=== PATIENT | female | born 1955 | race African-American/Black ===

== ENCOUNTER 2017-07-04 06:51 | Emergency (ER) | payer OTHER ==
[2017-07-04 08:22] VITALS: BP 131/80; PULSE 67; TEMP 97.6; BMI 33.3
--- NOTE | 2017-07-04 08:23 | PDOC ---
History of Present Illness - General Chief Complaint: Cold Symptoms Stated Complaint: DIFFICULTY BREATHING Time Seen by Provider: 07/04/17 07:53 - History of Present Illness Initial Comments: 07/04/17 08:48 The patient is a 62 year old female, with a significant past medical history of asthma, thyroid disorder who presents to the emergency department with a dry cough for approximately one week. She reports frequent coughing fits that keep her up at night. She reports associated chest pain when coughing, which she describes as a tightness, She reports post nasal drip and states she often has seasonal allergies. Denies any fever, chills, sore throat, SOB, headache, or dizziness. Patient reports taking Montelukast for her symptoms with minimal relief. She denies any diaphoresis, palpitations, or lower extremity edema. She denies any abdominal pain, nausea, or vomiting. She denies any recent travel or sick contacts. Allergies: NKDA Past Surgical History: None reported. Social History: Non smoker. No ETOH or recreational drug use. PCP: Dr. Plaza Past History - Past Medical History Allergies/Adverse Reactions: Allergies Allergy/AdvReac Type Severity Reaction Status Date / Time No Known Allergies Allergy Verified 06/02/15 20:54 Home Medications: Ambulatory Orders Ibuprofen [Motrin -] 800 mg PO Q6H #30 tablet 06/02/15 Albuterol Sulfate Inhaler - [Ventolin HFA Inhaler -] 1 - 2 inh PO Q4H PRN #1 inhaler 07/04/17 Loratadine 10 mg PO DAILY #10 tab.rapdis 07/04/17 Prednisone [Prednisone 50 MG TABLETS] 50 mg PO DAILY #4 tablet 07/04/17 Asthma: Yes COPD: No - Suicide/Smoking/Psychosocial Hx Smoking History: Never smoked Have you smoked in the past 12 months: No Information on smoking cessation initiated: No Hx Alcohol Use: No Drug/Substance Use Hx: No Substance Use Type: None Review of Systems - Review of Systems Comments:: 07/04/17 08:48 GENERAL/CONSTITUTIONAL: No fever or chills. No weakness. HEAD, EYES, EARS, NOSE AND THROAT: +Post nasal drip. No change in vision. No ear pain or discharge. No sore throat. GASTROINTESTINAL: No nausea, vomiting, diarrhea or constipation. GENITOURINARY: No dysuria, frequency, or change in urination. CARDIOVASCULAR: +Chest pain with coughing, no shortness of breath. RESPIRATORY: +Cough. No wheezing, or hemoptysis. MUSCULOSKELETAL: No joint or muscle swelling or pain. No neck or back pain. SKIN: No rash NEUROLOGIC: No headache, vertigo, loss of consciousness, or change in strength/ sensation. ENDOCRINE: No increased thirst. No abnormal weight change. HEMATOLOGIC/LYMPHATIC: No anemia, easy bleeding, or history of blood clots. ALLERGIC/IMMUNOLOGIC: No hives or skin allergy. *Physical Exam - Vital Signs Last Vital Signs Temp Pulse Resp BP Pulse Ox 97.6 F 67 20 131/80 100 07/04/17 08:17 07/04/17 08:17 07/04/17 08:17 07/04/17 08:17 07/04/17 08:17 - Physical Exam Comments: 07/04/17 08:49 GENERAL: Awake, alert, and fully oriented, in no acute distress HEAD: No signs of trauma EYES: PERRLA, EOMI, sclera anicteric, conjunctiva clear ENT: Auricles normal inspection, hearing grossly normal, +nasal congestion, oropharynx clear without exudates. Moist mucosa NECK: Normal ROM, supple, no lymphadenopathy, JVD, or masses LUNGS: Breath sounds equal, clear to auscultation bilaterally. No wheezes, and no crackles HEART: Regular rate and rhythm, normal S1 and S2, no murmurs, rubs or gallops ABDOMEN: Soft, nontender, normoactive bowel sounds. No guarding, no rebound. No masses EXTREMITIES: Normal range of motion, no edema. No clubbing or cyanosis. No cords, erythema, or tenderness BACK: No midline spinal tenderness in cervical/thoracic/lumbar region NEUROLOGICAL: Normal speech, cranial nerves intact, negative pronator drift, 5/ 5 strength in all 4 extremities, normal sensation to light touch in all 4 extremities, normal cerebellar exam, normal gait, normal reflexes and tone SKIN: Warm, Dry, normal turgor, no rashes or lesions noted. Medical Decision Making - Medical Decision Making 07/04/17 08:49 62-year-old female with a history of asthma, thyroid disorder, and seasonal ALLERGIES presents to the emergency department with cough for 5 days. Patient also reporting chest tightness only when she coughs. Vitals are unremarkable. Exam is unremarkable with no wheezing, and clear lung sounds. Patient likely has cough secondary to postnasal drip, but mild asthma exacerbation is on the differential as well. Will dose the patient with Claritin, nebs, and steroids as well as check chest x-ray to rule out any infiltrates and reassess. 07/04/17 10:32 Chest x-ray is clear. Patient reports significant improvement in symptoms after nebulizer treatment, loratadine and steroids. Will prescribe these medications to the patient for use at home. Patient advised to follow-up with Dr. Plaza within 2-3 days. Pt is clinically well appearing. I discussed the physical exam findings, ancillary test results and final diagnoses with the patient. I answered all of the patient's questions. The patient was satisfied with the care received and felt comfortable with the discharge plan and treatment plan. The patient will call their primary care physician within 24 hours to arrange follow-up and will return to the Emergency Department with any new, persistent or worsening symptoms. *DC/Admit/Observation/Transfer Diagnosis at time of Disposition: Cough - Discharge Dispostion Disposition: HOME Condition at time of disposition: Stable Decision to Admit order: No - Prescriptions Prescriptions: Albuterol Sulfate Inhaler - [Ventolin HFA Inhaler -] 1 - 2 inh PO Q4H PRN #1 inhaler PRN Reason: Shortness Of Breath Loratadine 10 mg PO DAILY #10 tab.rapdis Prednisone [Prednisone 50 MG TABLETS] 50 mg PO DAILY #4 tablet - Referrals Referrals: Dione Plaza MD [Primary Care Provider] - - Patient Instructions Printed Discharge Instructions: DI for Cough -- Adult Additional Instructions: As discussed, follow-up with Dr. Plaza within 2-3 days. Take the prednisone and loratadine as prescribed. Use the albuterol as needed for shortness of breath. Return to the emergency department if you have any new, worsening or concerning symptoms. - Post Discharge Activity - Attestations Physician Attestion: 07/04/17 10:34 I, Dr. Sonia Bergman MD, attest that this document has been prepared under my direction and personally reviewed by me in its entirety. I further attest, that it accurately reflects all work, treatment, procedures and medical decision -making performed by me.
[2017-07-04] MEDS ORDERED: LORATADINE 10 MG TABLET PO ONE (08:29)
[2017-07-04] MEDS ORDERED: ALBUTEROL SO4 2.5/IPRATROPIUM 0.5 INH SOL 3 ML VIAL.NEB. NEB ONE ×2 (08:29→09:10)
[2017-07-04] MEDS ORDERED: predniSONE 20 MG TABLET (UD) PO ONE (08:45)
[2017-07-04] MEDS ORDERED: LORATADINE 10 MG TABLET ONE ×2 (09:10→09:14)
[2017-07-04] MEDS ORDERED: predniSONE 10 MG TABLET (UD) ONE (09:10)
[2017-07-04] MEDS ORDERED: predniSONE 20 MG TABLET (UD) ONE (09:10)
== END 2017-07-04 10:36 | disposition home or self-care (01) ==
LOC: JER 06:51
PROC: 3E0F7GC Introduction of Other Therapeutic Substance into Respiratory Tract, Via Natural or Artificial Opening (ICD-10-PCS; principal; 2017-07-04)
DX: R05 Cough (principal); E07.9 Disorder of thyroid, unspecified; J45.909 Unspecified asthma, uncomplicated
CPT/HCPCS: 71046-TC-FY; 99281-25; J7620

== ENCOUNTER 2018-07-26 09:26 | Day surgery (SDC) | payer OTHER ==
[2018-07-25 09:08] VITALS: BMI 33.6
[2018-07-26] MEDS ORDERED: KETOROLAC TROMETHAMINE 30 MG/1 ML VIAL ONE (09:42)
[2018-07-26] MEDS ORDERED: LIDOCAINE HCL/PF 2% SDV 5ML VIAL ONE (09:42)
[2018-07-26] MEDS ORDERED: PROPOFOL 20 ML ONE ×9 (09:42→12:55)
[2018-07-26] MEDS ORDERED: DEXAMETHASONE SOD PHOSPHATE 4 MG/1 ML VIAL ONE ×2 (09:42→13:23)
[2018-07-26] MEDS ORDERED: MIDAZOLAM HCL 2 MG/2 ML SINGLE DOSE VIAL ONE (09:45)
[2018-07-26] MEDS ORDERED: ONDANSETRON 4 MG/2 ML VIAL IVPUSH PRN (10:21)
[2018-07-26] MEDS ORDERED: oxyCODONE HCL 5 MG TABLET PO PRN ×2 (10:21)
[2018-07-26] MEDS ORDERED: LACTATED RINGERS SOLUTION 1,000 ML IV SCH (10:30)
[2018-07-26] MEDS ORDERED: BUPIVACAINE HCL/PF 0.25% (2.5MG/ML) 10 ML VIAL ONE (11:14)
[2018-07-26] MEDS ORDERED: BUPIVACAINE HCL/PF 0.5% (5MG/ML) 10 ML VIAL ONE (11:29)
[2018-07-26] MEDS ORDERED: SODIUM CHLORIDE 0.9% P/F 10 ML VIAL IJ ONE (11:33)
[2018-07-26] MEDS ORDERED: ceFAZolin SODIUM 1 GM VIAL ONE (11:33)
[2018-07-26] MEDS ORDERED: ceFAZolin 2 GRAM PREMIX BAG IVPB ONE (11:46)
[2018-07-26] MEDS ORDERED: BUPIVACAINE HCL/PF (5 MG/ML) 30 ML VIAL IJ ONE (11:48)
[2018-07-26] MEDS ORDERED: EPHEDRINE SULFATE/0.9% NACL/PF 50 MG/10 ML SYRINGE NR ONE (11:50)
[2018-07-26] MEDS ORDERED: BENZOIN TINCTURE SWABSTICK TP ONE (13:20)
[2018-07-26] MEDS ORDERED: DEXAMETHASONE SOD PHOSPHATE 4 MG/1 ML VIAL IM ONE (13:34)
[2018-07-26] MEDS ORDERED: KETOROLAC TROMETHAMINE 30 MG/1 ML VIAL IVPUSH ONE ×2 (13:47→14:09)
[2018-07-26 14:38] VITALS: TEMP 97.6
[2018-07-26 17:26] VITALS: BP 130/88; PULSE 69
--- NOTE | 2018-07-28 16:44 | OP ---
DATE OF OPERATION: 07/26/2018 SURGEON: Kahlil Franco DPM WIDE [employer]IECE GOODS INSPECTOR SURGEON: Kenny Milner DPM. ANESTHESIOLOGIST: DIAGNOSES: 1. Hallux abductovalgus deformity, left. 2. Tailor's bony deformity, left. 3. Synovitis peroneal brevis tendon and subtalar joint, left. 4. Plantar fasciitis, left. 5. 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 6. Mallet toe deformity 2, 3, 4, 5, left. DESCRIPTION OF PROCEDURE: The patient was brought to the OR and placed on the OR table in the supine position. Neuroleptic anesthesia was administered and an ankle block was performed using 0.25% Marcaine. The left extremity was elevated for approximately 5 minutes and a well-padded pneumatic ankle tourniquet was inflated to 250 mmHg. Procedure number 1 - Navid bunionectomy left with a 16 x 3.0 partially threaded cortical cannulated screw fixation, left foot. Attention was directed to the first MPJ. A curvilinear incision was made over the first MPJ. The incision was deepened down through subcutaneous tissue maintaining hemostasis necessary with 4-0 Vicryl ligature. The superficial fascia was freed from the deep fascia. An inverted L -type capsular incision was made. Subcapsular and subperiosteal dissection was completed. The dorsal medial prominence of the first metatarsal was delivered into the wound site and resected with a sagittal saw. Then the osteotomy was created at an approximately 55 degree angle from median to lateral across the first metatarsal. The capital fragment was then distracted both laterally and impacted upon first metatarsal for stability. Then a 3.0 mm x 16-mm partially threaded cortical screw was driven across the osteotomy from distal dorsal to plantar proximal. Rigid internal fixation was gained. Then the prominent medial and cortical edge was resected at the sagittal saw. Closure was performed using 2-0 Vicryl for joint capsule, 4-0 Vicryl for subcutaneous and running 4-0 nylon subcuticular. Procedure number 2 - Arthroplasty DIPJ, second digit left. Attention was directed to the DIPJ of the second digit left where 2 converging transverse incisions were created. A wedge of skin was removed in toto. The incision was deepened into the DIPJ of the 2nd digit. The medial and lateral collateral ligaments were sectioned. The head of the middle phalanx was delivered into the wound site and resected using a sagittal saw. Then a 0.045 K-wire was driven out the distal and retrograded back into the middle and proximal phalanx. The K-wire was bent and cut. Closure was performed using 4-0 Vicryl extensor tendon and 4-0 nylon for the skin. Procedure number 3 - Tailor's bunionectomy, left foot. Attention was directed to the dorsal lateral side of the 5th metatarsal where a linear incision was created. The incision was deepened down through subcutaneous tissue maintaining hemostasis as necessary with 4-0 Vicryl ligature and Bovie cautery. A capsular incision was made into the 5th MPJ. The head of the 5th metatarsal was dissected free of subcapsular and subperiosteal tissues delivered into the wound site and resected using the sagittal saw. All bony edges were rasped smooth and the wound site was flushed with sterile saline. Closure was performed using 4-0 Vicryl for joint capsule, subcutaneous closure, and 4-0 nylon for the skin. Procedure number 4 - Adjacent tissue transfer, left. Attention was directed to a previous cicatrix dorsum of the left foot. A linear incision was made paralleling the contracture which was longitudinal. The incision was deepened down through subcutaneous tissue. A Z-plasty was performed. Two arms were created at approximately a 60-degree angle. The incisions were deepened down through the subcutaneous level. Two triangular flaps were raised and rotated approximately 90 degrees to reorient the contracture from longitudinal to transverse. Skin closure was performed using 4-0 nylon, simple, and apical sutures. Procedure number 5 - Synovectomy flexor, left. Attention was directed to the insertion of the peroneal brevis tendon. A linear incision was made paralleling the tendon. The incision was deepened down through the tendon sheath. Hypertrophic synovitis was noted to be within the tendon sheath and resected. The area was lavaged with sterile saline. Closure was performed using 3-0 and 4-0 Vicryl tendon sheath, 4-0 Vicryl subcutaneous, and 4-0 nylon for the skin. Procedure number 6 - Tenotomy and capsulotomy of 2nd MPJ, left. A linear incision was made between the 2nd and 3rd MPJs. The incision was deepened down through the subcutaneous tissue maintaining hemostasis necessary for a 4-0 Vicryl ligature. The attention was directed to the extensor tendon complex 2nd MPJ and lengthening was performed. Then the U-shaped capsulotomy was made into the 2nd MPJ. The contracture was noted to reduce and the wound site was flushed with sterile saline. Extensor tendon complex repair was performed using 4-0 Vicryl. Procedure number 7 - Tenotomy and capsulotomy 3rd MPJ, left. With exposure gained from the previous procedure, attention was directed to the extensor tendon complex of the 3rd MPJ. Lengthening was performed of the extensor tendon and a U-shaped capsulotomy was made into the 3rd MPJ. Subcapsular dissection was completed, the contracture was noted to reduce, and the wound site was flushed with sterile saline. Closure was performed using 4-0 Vicryl subcutaneous and 4-0 nylon for the skin. Procedure number 8 - Tenotomy and capsulotomy 4th metatarsophalangeal joint, left. Attention was directed to the 4th MPJ left. A linear incision was made. The incision was deepened down through subcutaneous tissue maintaining hemostasis as necessary with a 4-0 Vicryl ligature. The extensor tendon complex was identified and the lengthening was performed. Then a U-shaped capsulotomy was created. The contracture was noted to reduce. The wound site was flushed with sterile saline and closure was performed using 4-0 Vicryl for subcutaneous and 4-0 nylon for the skin. Procedure number 9 - Fasciotomy, left. Attention was directed to the insertion of the plantar fascia medially. The linear incision was made paralleling the plantar fascia. The incision was deepened down through the medial band of the plantar fascia which was transected at its insertion. The wound site was flushed with sterile saline and closure was performed using 4-0 nylon. Procedure number 10 - Tenotomy DIPJ 3rd digit, left. Attention was directed plantarly to the DIPJ where a transverse incision was made. The incision was deepened down to the joint capsule of the DIPJ. A transverse tenotomy and capsulotomy was created. Good contractures were closed using 4-0 nylon. Procedure number 11 - Tenotomy DIPJ 4th digit, left. Attention was directed to the plantar aspect of the DIPJ 4th digit, left. A transverse incision was created and the incision was deepened down through the joint capsule of the DIPJ and transverse tenotomy and capsulotomy was created. Contracture was noted to reduce. Closure was performed using 4-0 nylon for skin. Procedure number 12 - Tenotomy DIPJ 5th digit, left. Attention was directed to the plantar aspect of the 5th digit, left. A transverse incision was created. The incision was deepened down to the DIPJ of the 5th digit left and the transverse tenotomy and capsulotomy was created. Contractures were noted to reduce and skin closure was done using 4-0 nylon. Procedure number 13 - Arthrotomy, left. Attention was directed to the midfoot. A linear incision was made in the midfoot over the tarsal, metatarsal, intertarsal joint. The incision was deepened down through subcutaneous tissue maintaining hemostasis as necessary with a 4-0 Vicryl ligature. Subscapular dissection was completed at the tarsal, metatarsal and intertarsal joint. Some hypertrophic synovitis as well as what appears to be gout crystals were excised from this area and thorough debridement was performed. The area was lavaged with sterile saline and closure was performed using 4-0 Vicryl joint capsule, subcutaneous, and 4-0 nylon for the skin. Postoperatively all surgical sites were dressed with sterile 4 x 4s, Adaptic, Steri-Strips, Kerlix, Coban and SENG bandage. The well-padded pneumatic ankle tourniquet was deflated and normal hyperemic flush noted to return to all digits of the left foot. The patient tolerated the surgery and anesthesia well and left the OR for the recovery room with vital signs stable and in apparent satisfactory condition. KAHLIL FRANCO DPM [id number] MTDСветлана
--- NOTE | 2018-07-30 17:02 | PATH ---
Surgical Pathology Report Patient Name: CAYETANO GARCIA [facility]. Rec. #: [id number] /Age/Gender: 1955 (Age: 63) / F Account: [id number] Location: [facility] Taken: 07/26/2018 Received: 07/29/2018 Reported: 07/30/2018 Physicians: Kahlil Sevilla DPM Specimen(s) Received A: TISSUE OF LEFT FOOT B: BONE 2ND DIGIT LEFT FOOT C: SKIN OF LEFT FOOT D: BONE GREAT TOE LEFT FOOT E: SYNOVIUM F: JOINT CAPSULE GREAT TOE LEFT FOOT G: METATARSAL BONE OF LEFT FIFTH TOE Clinical History Hallux valgus left foot Final Diagnosis A. TISSUE, LEFT FOOT, EXCISION: FIBROCONNECTIVE TISSUE WITH NO SIGNIFICANT PATHOLOGIC CHANGE. NO HISTOLOGIC EVIDENCE OF GOUT. B. BONE, SECOND DIGIT, LEFT FOOT, EXCISION: CARTILAGE CAPPED BONE WITH FATTY MARROW SHOWING DEGENERATIVE CHANGE. C. SKIN, LEFT FOOT, SKIN PLASTY: PORTION OF ACRAL SKIN WITH NO SIGNIFICANT PATHOLOGIC CHANGE. D. BONE, GREAT TOE, LEFT FOOT, EXCISION: CARTILAGE AND BONE WITH FATTY MARROW SHOWING FOCAL DEGENERATIVE CHANGE. E. SYNOVITIS, GREAT TOE, EXCISION: PORTION OF FIBROCONNECTIVE TISSUE WITH FIBROSIS AND FOCAL DYSTROPHIC CALCIFICATION. F. JOINT CAPSULE, GREAT TOE, LEFT FOOT, EXCISION: FIBROCARTILAGINOUS TISSUE WITH FOCAL DEGENERATIVE CHANGE. G. METATARSAL BONE OF LEFT FIFTH TOE, EXCISION: FIBROCONNECTIVE TISSUE AND CARTILAGE CAPPED BONE WITH FATTY MARROW SHOWING FOCAL REACTIVE AND DEGENERATIVE CHANGE. Electronically Signed Lizette Toledo M.D. Gross Description A. Received in formalin labeled "tissue left foot rule out gout," is a 0.5 cm in greatest dimension burks soft tissue fragment. The specimen is submitted in toto in one cassette. B. Received in formalin labeled "bone second digit left foot," is a 1.0 x 0.6 x 0.3 cm burks-yellow portion of bone. The specimen is bisected and entirely submitted in one cassette, following decalcification. C. Received in formalin labeled "skin second digit left foot," is a 1.5 x 0.6 cm burks, elliptical, unoriented portion of skin excised to a depth of 0.2 cm. The epidermal surface is unremarkable. Torch Solderer sections are submitted in one cassette. D. Received in formalin labeled "bone great toe left foot," are 2 burks-yellow portions of bone measuring 1.8 x 1.0 x 0.4 cm and 2.0 x 1.7 x 0.6 cm. Torch Solderer sections are submitted in one cassette, following decalcification. E. Received in formalin labeled "synovitis left great toe," is a 0.5 cm in greatest dimension burks portion of soft tissue. The specimen is submitted in toto in one cassette. F. Received in formalin labeled "great toe joint capsule left foot," is a 1.8 x 0.7 x 0.2 cm burks portion of soft tissue. The specimen is bisected and entirely submitted in one cassette. G. Received in formalin labeled "metatarsal bone of fifth toe left," are 3 burks-yellow portions of bone ranging from 0.6 x 0.3 x 0.1 cm to 1.2 x 0.6 x 0.2 cm. The largest portion is bisected and the specimen is entirely submitted in one cassette, following decalcification. 07/29/2018 [facility]07/29/2018
== END 2018-07-26 16:02 | disposition home or self-care (01) ==
LOC: JASU-SURG 09:26
PROVIDERS: ATTEND Podiatrist
PROC: 0QSP04Z Reposition Left Metatarsal with Internal Fixation Device, Open Approach (ICD-10-PCS; 2018-07-26)
PROC: 0QSR04Z Reposition Left Toe Phalanx with Internal Fixation Device, Open Approach (ICD-10-PCS; 2018-07-26)
PROC: 0QBR0ZZ Excision of Left Toe Phalanx, Open Approach (ICD-10-PCS; 2018-07-26)
PROC: 0SSN0ZZ Reposition Left Metatarsal-Phalangeal Joint, Open Approach (ICD-10-PCS; 2018-07-26)
PROC: 0SNQ0ZZ Release Left Toe Phalangeal Joint, Open Approach (ICD-10-PCS; principal; 2018-07-26 11:00)
DX: M20.5X2 Other deformities of toe(s) (acquired), left foot (principal); M65.872 Other synovitis and tenosynovitis, left ankle and foot; M21.622 Bunionette of left foot; M72.2 Plantar fascial fibromatosis; M24.575 Contracture, left foot; M21.612 Bunion of left foot
CPT/HCPCS: 73630-TC-LT; 88304-TC; 88311-TC; 94760

== ENCOUNTER 2018-12-17 11:42 | Day surgery (SDC) | payer OTHER ==
--- NOTE | 2018-12-16 09:38 | HP ---
[facility]ellite [facility] - Chief Complaint Chief Complaint: right knee pain - Past Medical History Allergies/Adverse Reactions: Allergies Allergy/AdvReac Type Severity Reaction Status Date / Time No Known Allergies Allergy Verified 11/05/18 09:06 - Current Medications Current Medications: Home Medications Medication Instructions Recorded Albuterol Sulfate Inhaler - 1 - 2 inh PO Q4H PRN #1 inhaler 07/04/17 [Ventolin HFA Inhaler -] Loratadine 10 mg PO DAILY #10 tab.rapdis 07/04/17 Thyroid [[place] Thyroid] 90 mg PO ASDIR 07/25/18 Satellite Physical Exam - Physical Examination General Appearance: Well Nourished, Well Developed, Alert & Oriented x3 ENT: Clear Lung: Normal air movement Extremities: Other (right knee- + swelling, + ttp, decr rom, + mcmurrays, nvi, MRI + mmt, lmt, OA) Neurological: Intact, Alert, Oriented Satellite Impression/Plan - Impression/Plan Impression: right knee internal derangement Operative Procedure: right knee arthroscopy Date to be Performed: 12/17/18
[2018-12-16 14:34] VITALS: BMI 36.1
[2018-12-17] MEDS ORDERED: BUPIVACAINE HCL/PF 0.5% (5 MG/ML) 30 ML VIAL IJ ONE (14:51)
[2018-12-17] MEDS ORDERED: MIDAZOLAM HCL 2 MG/2 ML SINGLE DOSE VIAL ONE (14:54)
[2018-12-17] MEDS ORDERED: PROPOFOL 20 ML ONE (14:54)
[2018-12-17] MEDS ORDERED: LIDOCAINE HCL/PF 2% SDV 5ML VIAL ONE (14:56)
[2018-12-17] MEDS ORDERED: ceFAZolin SODIUM 1 GM VIAL IVPB ONE (15:18)
[2018-12-17] MEDS ORDERED: ONDANSETRON 4 MG/2 ML VIAL ONE (15:22)
[2018-12-17] MEDS ORDERED: ceFAZolin SODIUM 1 GM VIAL ONE (15:22)
[2018-12-17] MEDS ORDERED: DEXAMETHASONE SOD PHOSPHATE 4 MG/1 ML VIAL ONE (15:22)
--- NOTE | 2018-12-17 16:14 | OP ---
Operative Note - Note: Operative Date: 12/17/18 Pre-Operative Diagnosis: right knee medial meniscus tear, OA, ACL insufficency Operation: right knee arthroscopy, partial medial meniscectomy, debridement chondroplasty, ACL reconstruction/thermal shrinkage Post-Operative Diagnosis: Same as Pre-op Surgeon: Manoj Buitrago Anesthesiologist/SENIOR GRANT WRITER: Marissa Hua Anesthesia: General, Local Specimens Removed: shrinkage Estimated Blood Loss (mls): 0 Drains, Volume Out (mls): 0 Blood Volume Replaced (mls): 0 Fluid Volume Replaced (mls): 700 Operative Report Dictated: Yes
[2018-12-17] MEDS ORDERED: ONDANSETRON 4 MG/2 ML VIAL IVPUSH PRN (16:23)
[2018-12-17] MEDS ORDERED: oxyCODONE HCL 5 MG TABLET PO PRN (16:23)
[2018-12-17] MEDS ORDERED: LACTATED RINGERS SOLUTION 1,000 ML IV SCH (16:30)
--- NOTE | 2018-12-17 17:02 | OP ---
DATE OF OPERATION: 12/17/2018 PREOPERATIVE DIAGNOSIS: Right knee pain, medial meniscus tear, osteoarthritis, and anterior cruciate ligament insufficiency. POSTOPERATIVE DIAGNOSIS: Right knee pain, medial meniscus tear, osteoarthritis, and anterior cruciate ligament insufficiency. PROCEDURE: Right knee arthroscopy, partial medial meniscectomy, debridement chondroplasty, anterior cruciate ligament thermal shrinkage/reconstruction. SURGEON: Jeffrey Arnett MD [employer] OPERATOR: None. ANESTHESIA: Marissa Hua CRNA, MAC anesthesia with local injection of 20 mL 0.5% Marcaine. DRAINS: None. COMPLICATIONS: None. SPECIMEN: Arthroscopic shavings. BLOOD LOSS: None. BLOOD GIVEN: None. FLUID REPLACEMENT: 700 mL Plasma-Lyte. INDICATIONS: This patient is a 63-year-old female with a preoperative diagnosis of right knee pain, medial meniscus tear, osteoarthritis, and instability who after understanding the potential risks, complications, alternatives, and benefits to surgery versus nonsurgical treatment, has elected to undergo this procedure. DESCRIPTION OF PROCEDURE: Patient was brought to the operating room. Peripheral IV placed. IV sedation given, 2 g of IV Ancef was given. Ample Webril was placed around the right thigh. The C-clamp leg atwood was applied with a Styrofoam ring. The right lower extremity was prepped and draped in sterile fashion, elevated, exsanguinated with an Esmarch bandage and tourniquet inflated to 275 mmHg. A superior medial outflow portal was established. A lateral port was established. An arthroscope was introduced in the joint, and a diagnostic arthroscopy was performed. The patient was seen to have areas of grade 2/grade 3 osteoarthritis of the medial femoral condyle and the medial tibial plateau, but overall, it was not as bad as I was expecting. The patient had a complex tear of the posterior horn of the body of the meniscus. Using a spinal needle, a medial portal was established, and using combination of the upbiting forceps and the curved shaver, a partial medial meniscectomy was performed. Photographs were taken before and after. I also did a gentle debridement chondroplasty of loose cartilage on the medial femoral condyle. Next, the intercondylar notch was evidenced. The ACL looked quite loose. It was evaluated with a probe. It was seen to be quite loose; and therefore, with knee in approximately 45 degrees of flexion using the ArthroCare wand on the lowest setting, No. 1, I did an anterior cruciate ligament thermal shrinkage, and several times during it, I put the probe back in, tested the tension. The tension increased throughout the thermal shrinkage procedure, and at the end of the anterior cruciate ligament reconstruction, the ACL was much more stable than before. I certainly did not over cauterize it. Next, the lateral compartment was directly visualized. There was no arthritis. Meniscus looked good, and photographs were taken. Next, the patellofemoral joint was evaluated. The undersurface of the patella looked good. There were some areas of grade 1 chondromalacia crab meat effect, and this was debrided with the curved shaver. Excessive fat pad was removed. The trochlea was evaluated. There were areas of grade 1/grade 2 chondromalacia. This was also gently debrided after the debridement chondroplasty. The area was copiously irrigated and washed out. All instrumentation were removed. The arthroscopy portal was closed with 3-0 nylon sutures, 20 mL 0.5% Marcaine introduced into the joint. The area was then washed and dried, covered with Xeroform gauze, 4 x 4 gauze, Webril, and two 6-inch Clement bandage. Tourniquet was taken down after a total tourniquet time of about 25 minutes. There were no complications during the case. The patient tolerated the procedure quite well and was brought to the ambulatory recovery in stable condition. JEFFREY ARNETT M.D. [id number]
[2018-12-17 17:51] VITALS: TEMP 98.7
[2018-12-17] MEDS ORDERED: ACETAMINOPHEN 1000 MG/100 ML VIAL (NON FORMULARY) IVPB ONE ×2 (18:04→18:05)
[2018-12-17] MEDS ORDERED: ACETAMINOPHEN INJECTION 100 ML IVPB ONE (18:06)
[2018-12-17 19:26] VITALS: BP 142/71; PULSE 79
--- NOTE | 2018-12-24 14:16 | PATH ---
Surgical Pathology Report Patient Name: CAYETANO GARCIA [facility]. Rec. #: [id number] /Age/Gender: 1955 (Age: 63) / F Account: [id number] Location: [facility] SURGICAL Taken: 12/17/2018 Received: 12/18/2018 Reported: 12/24/2018 Physicians: Manoj Buitrago M.D. Specimen(s) Received RIGHT KNEE SHAVINGS Clinical History Right knee internal derangement Final Diagnosis KNEE, RIGHT, ARTHROSCOPIC SHAVINGS: FIBROSYNOVIAL TISSUE AND CARTILAGE. Electronically Signed Marie Solano M.D. Gross Description Received in formalin, labeled "right knee shavings," is a 5.0 x 5.0 x 0.4 cm. aggregate of burks-yellow soft tissue fragments. A enrollment eligibility representative portion is submitted in one cassette. /12/19/201812/19/2018
== END 2018-12-17 19:25 | disposition home or self-care (01) ==
LOC: JASU-SURG 11:42
PROVIDERS: ATTEND Orthopaedic Surgery
PROC: 0SQC4ZZ Repair Right Knee Joint, Percutaneous Endoscopic Approach (ICD-10-PCS; 2018-12-17)
PROC: 0SQC4ZZ Repair Right Knee Joint, Percutaneous Endoscopic Approach (ICD-10-PCS; 2018-12-17)
PROC: 0SBC4ZZ Excision of Right Knee Joint, Percutaneous Endoscopic Approach (ICD-10-PCS; principal; 2018-12-17 14:30)
DX: S83.231A Complex tear of medial meniscus, current injury, right knee, initial encounter (principal); S86.211A Strain of muscle(s) and tendon(s) of anterior muscle group at lower leg level, right leg, initial encounter; M17.11 Unilateral primary osteoarthritis, right knee; X58.XXXA Exposure to other specified factors, initial encounter; Y93.9 Activity, unspecified; Y92.9 Unspecified place or not applicable; Y99.9 Unspecified external cause status
CPT/HCPCS: 88304-TC; 94760; J0131

== ENCOUNTER 2019-02-22 22:10 | Emergency (ER) | payer OTHER ==
[2019-02-22 22:19] VITALS: BP 153/68; PULSE 84; TEMP 98; BMI 36.0
--- NOTE | 2019-02-22 23:13 | PDOC ---
History of Present Illness - General Chief Complaint: Edema Stated Complaint: PAIN/SWELLING LT LEG X 7 DAYS Time Seen by Provider: 02/22/19 22:54 - History of Present Illness Initial Comments: The pt is a 64F w/ a history of Shaq's thyroiditis (synthroid), distant history of lymphoma s/p CTX who presents for evaluation of 5 days of LLE swelling. The pt reports LLE swelling that has been waxing/waning this week with intermittent calf pain. She denies redness to the area. Denies history of DVT/PE, family history of DVT/PE, OCPs, recent travel, trouble breathing, or JACOBO. Denies fevers/chills, chest pain, abdominal pain, N/V/C/D, dysuria, hematuria, or changes in strength/sensation. 02/22/19 23:08 Past History - Past Medical History Allergies/Adverse Reactions: Allergies Allergy/AdvReac Type Severity Reaction Status Date / Time No Known Allergies Allergy Verified 02/22/19 22:18 Home Medications: Ambulatory Orders Thyroid [[place] Thyroid] 90 mg PO ASDIR 07/25/18 Thyroid [[place] Thyroid] 60 mg PO ASDIR 12/16/18 Hydrocodone/Acetaminophen [Hydrocodone-Acetamin 5-325 mg] 1 each PO Q6H #15 tablet MDD 4 12/17/18 Anemia: No Asthma: No Cancer: Yes (HX LEUKEMIA 1998, RESOLVED) Cardiac Disorders: No CVA: No COPD: No CHF: No Dementia: No Diabetes: No GI Disorders: No Disorders: No HTN: No Hypercholesterolemia: No Liver Disease: No Seizures: No Thyroid Disease: Yes (HYPO) - Surgical History Abdominal Surgery: No Appendectomy: No Cardiac Surgery: No Cholecystectomy: No Lung Surgery: No Neurologic Surgery: No Orthopedic Surgery: Yes (RIGHT ANKLE,) - Psycho Social/Smoking Cessation Hx Smoking History: Never smoked Have you smoked in the past 12 months: No Hx Alcohol Use: Yes (SOCIALLY) Drug/Substance Use Hx: No Substance Use Type: None Hx Substance Use Treatment: No Review of Systems - Review of Systems Able to Perform ROS?: Yes Comments:: GENERAL/CONSTITUTIONAL: No fever or chills. No weakness HEAD, EYES, EARS, NOSE AND THROAT: No change in vision. No change in hearing. No sore throat CARDIOVASCULAR: No chest pain or shortness of breath RESPIRATORY: Denies cough, hemoptysis GASTROINTESTINAL: No nausea, vomiting, diarrhea or constipation GENITOURINARY: No dysuria, frequency, or change in urination MUSCULOSKELETAL: No neck or back pain SKIN: No rash NEUROLOGIC: No headache, vertigo, loss of consciousness, or change in strength/ sensation ENDOCRINE: No increased thirst. No abnormal weight change HEMATOLOGIC/LYMPHATIC: No anemia, easy bleeding, or history of blood clots ALLERGIC/IMMUNOLOGIC: No hives or skin allergy 02/22/19 23:11 Is the patient limited Kazakh proficient: No *Physical Exam - Vital Signs Last Vital Signs Temp Pulse Resp BP Pulse Ox 98.0 F 84 18 153/68 99 02/22/19 22:17 02/22/19 22:17 02/22/19 22:17 02/22/19 22:17 02/22/19 22:17 - Physical Exam GENERAL: Awake, alert, and oriented to person/place/time, in no acute distress HEAD: No signs of trauma, normoc ephalic, atraumatic EYES: PERRLA, EOMI, sclera anicteric, conjunctiva clear ENT: Hearing grossly normal, nares patent, oropharynx clear without exudates. Moist mucosa LUNGS: No distress, speaks in full sentences, clear to auscultation bilaterally HEART: Regular rate and rhythm, normal S1 and S2, no murmurs appreciated, b/l radial, femoral, DP 2+ ABDOMEN: Soft, nontender, normoactive bowel sounds. No guarding, no rebound EXTREMITIES: LLE non-pitting swelling noted from ankle to proximal 1/3 of tibia , no calf TTP, no overlying erythema or palpable cords; moves all extremities independently NEUROLOGICAL: Cranial nerves II through XII grossly intact. Normal speech, no focal sensorimotor deficits SKIN: Warm, Dry 02/22/19 23:11 ED Treatment Course - LABORATORY CBC & Chemistry Diagram: 02/22/19 23:05 02/22/19 23:05 - RADIOLOGY Radiology Studies Ordered: Category Date Time Status DUPLEX VASCUL US-1 LEG [US] Stat Ultrasound 02/22/19 22:40 Ordered Radiograph Interpretation: THIS IS A PRELIMINARY REPORT FROM [facility] DATE OF SERVICE: 2019-02-23 00:31:57 EXAM: DUPLEX VASCULAR US-1 LEG FINDINGS: There is no DVT in the left lower extremity. IMPRESSION: No DVT. 02/23/19 01:18 Medical Decision Making - Medical Decision Making The pt is a 64F w/ a history of Shaq's thyroiditis (synthroid), distant history of lymphoma s/p CTX who presents for evaluation of 5 days of LLE swelling. Pt no tachypnic, hypoxic, or tachycardic ED Course CMP, CBC, Coags, D-dimer ECG Duplex LLE Pt denies pain at this time 02/22/19 23:13 ECG w/ NSR; HR 76; QTc 441; no axis deviation; no JANELLE, no TWI No leukocytosis No anemia Lytes unremarkable No RAINA LFTs unremarkable D-dimer elevated -Pt currently at undergoing LLE US 02/23/19 00:38 US w/o evidence of DVT Pt will need f/u US in 1 week Plan for D/C w/ PCP f/u Discharge instructions and return precautions given Patient in agreement and verbalized understanding Dispo: Home 02/23/19 01:18 Discharge - Discharge Information Problems reviewed: Yes Clinical Impression/Diagnosis: Swelling of left lower extremity Condition: Stable - Admission No - Follow up/Referral Referrals: Dione Plaza MD [Staff Physician] - - Patient Discharge Instructions Additional Instructions: You were seen in the Emergency Department for evaluation of left leg swelling. Your ultrasounds was negative for a blood clot in your leg. However, your laboratory study may suggest that you could be developing a blood clot. You will need to have a repeat ultrasound of your left leg in 1 week. You may return here to do so. Return to the Emergency Department sooner if you develop worsening swelling, overlying redness, pain that will not go away, trouble breathing, chest pain, dizziness, you become more short of breath than usual with daily activities, worsening symptoms, or any new/concerning symptoms. - Post Discharge Activity Work/Back to School Note: Back to Work
[2019-02-22 23:35] LABS: BASO % 0.4 % (0-2.0); EOS % 1.9 % (0-4.5); HEMATOCRIT 35.4 % (32.4-45.2); HEMOGLOBIN 11.7 GM/dL (10.7-15.3); LYMPH % 46.9 % (8-40); MCH 28.2 pg (25.7-33.7); MEAN CELL VOLUME 85.5 fl (80-96); MEAN PLT VOLUME 8.5 fl (7.5-11.1); MONO % 9.9 % (3.8-10.2); NEUT % 40.9 % (42.8-82.8); PLATELET COUNT 367 K/MM3 (134-434); RBC 4.14 M/mm3 (3.60-5.2); RDW 14.8 % (11.6-15.6); WHITE BLOOD COUNT 5.3 K/mm3 (4.0-10.0)
--- NOTE | 2019-02-22 23:36 | PDOC ---
Attending Attestation - Resident Resident Name: Sanjeev Patel - ED Attending Attestation I have performed the following: I have examined & evaluated the patient, The case was reviewed & discussed with the resident, I agree w/resident's findings & plan - HPI HPI: 02/22/19 23:35 Pt comes with LLE swelling and edema. She went back to work on Sunday earlier this week. SHe had had 6 mos off, after a left foot surgery/bunionectomy She has been at home active for the past 6 mos. She has no long trips; no immobilization for prolonged periods. She has no fevers or chills No smoking hx No hormone therapy, other than thyroid hormones for her hashimotos. She has a hx of leukemia in remission; last clean screen was 2017. - Physicial Exam PE: 02/22/19 23:45 Normal exam. Left calf and knee are swollen compared to the right. Pt has swollen ankle and foot on the left. Heart and lungs normal No abd pain and no flank pain. She has no neuro deficits. - Medical Decision Making 02/22/19 23:46 Labs and sono pending. 02/23/19 00:39 D dimer is 1000; pt is at sono to r/o blood clot in the left leg 02/23/19 01:18 Patient Name: CAYETANO GARCIA THIS IS A PRELIMINARY REPORT FROM [facility] DATE OF SERVICE: 2019-02-23 00:31:57 IMAGES: 22 EXAM: DUPLEX VASCULAR US-1 LEG HISTORY: Rule out DVT COMPARISON: None. FINDINGS: There is no DVT in the left lower extremity. IMPRESSION: No DVT. Heart Score/ECG Review - ECG Intrepretation Rhythm: Regular Rhythm - Frank[place] Frank[place]: Normal - P and SD Delta Wave(s) Present: No WPW: No - QRS Poor R Wave Progression: No Q Wave Present: No - ST and T Early Repolarization: No Non Specific ST-T Wave changes: No Flattened T Waves: No Prolonged Q-T Interval: No - ECG Impressions Normal ECG: Yes Non-specific ST Elevation: No Ischemic Changes: No Torsades curtis Pointes: No
[2019-02-22 23:43] LABS: INR 0.92 (0.83-1.09); PROTHROMBIN TIME (PATIENT) 10.8 SEC (9.7-13.0)
[2019-02-22 23:46] LABS: ACTIVATED PTT 37.8 SECONDS (25.2-36.5)
[2019-02-23 00:09] LABS: ALBUMIN 3.9 g/dl (3.4-5.0); BILIRUBIN,TOTAL 0.1 mg/dL (0.2-1); BLOOD UREA NITROGEN 19.2 mg/dL (7-18); CREATININE 0.8 mg/dL (0.55-1.3); POTASSIUM 4.4 mmol/L (3.5-5.1); TOT PROT 7.2 g/dl (6.4-8.2)
--- NOTE | 2019-02-23 11:01 | EKG ---
Test Reason : Blood Pressure : / mmHG Vent. Rate : 076 BPM Atrial Rate : 076 BPM P-R Int : 164 ms QRS Dur : 090 ms QT Int : 392 ms P-R-T Axes : 045 020 035 degrees QTc Int : 441 ms NORMAL SINUS RHYTHM NORMAL ECG WHEN COMPARED WITH ECG OF 21-SEP-2003 13:22, NO SIGNIFICANT CHANGE WAS FOUND Confirmed by PRANAV GOODWIN MD ([id number]) on 02/23/2019 11:01:04 AM Referred By: Confirmed By:PRANAV GOODWIN MD
== END 2019-02-23 01:30 | disposition home or self-care (01) ==
LOC: JER 22:10
DX: R22.42 Localized swelling, mass and lump, left lower limb (principal); C94.81 Other specified leukemias, in remission; E06.3 Autoimmune thyroiditis
CPT/HCPCS: 36415; 80053; 85025; 85379; 85610; 85730; 93005; 93010; 93971-TC; 99282-25

== ENCOUNTER 2019-08-11 05:03 | Day surgery (SDC) | payer OTHER ==
[2019-08-06 17:35] VITALS: BMI 37.7
--- NOTE | 2019-08-07 09:36 | HP ---
Satellite [facility] - Chief Complaint Chief Complaint: right knee pain - Past Medical History Allergies/Adverse Reactions: Allergies Allergy/AdvReac Type Severity Reaction Status Date / Time acetaminophen [From Percocet] AdvReac Verified 08/06/19 17:40 oxycodone [From Percocet] AdvReac Verified 08/06/19 17:40 - Current Medications Current Medications: Home Medications Medication Instructions Recorded Thyroid [[place] Thyroid] 90 mg PO DAILY 12/16/18 Acetaminophen [Tylenol -] 500 mg PO Q4H 08/06/19 Satellite Physical Exam - Physical Examination General Appearance: Well Nourished, Well Developed, Alert & Oriented x3 ENT: Clear Lung: Normal air movement Extremities: Other (right knee- +swelling, + ttp, decr rom, + mcmurrays, nvi) Neurological: Intact, Alert, Oriented Satellite Impression/Plan - Impression/Plan Impression: right knee internal derangement Operative Procedure: right knee arthroscopy Date to be Performed: 08/11/19
[2019-08-11] MEDS ORDERED: KETOROLAC TROMETHAMINE 30 MG/1 ML VIAL ONE (07:42)
[2019-08-11] MEDS ORDERED: DEXAMETHASONE SOD PHOSPHATE 4 MG/1 ML VIAL ONE (07:42)
[2019-08-11] MEDS ORDERED: PROPOFOL 20 ML ONE (07:42)
[2019-08-11] MEDS ORDERED: SUCCINYLCHOLINE CHLORIDE 200 MG/10 ML SYRINGE ONE (07:43)
[2019-08-11] MEDS ORDERED: LIDOCAINE HCL 2% JELLY (5 ML/TUBE) ONE (07:43)
[2019-08-11] MEDS ORDERED: GLYCOPYRROLATE 0.2 MG/1 ML VIAL ONE ×2 (08:13)
[2019-08-11] MEDS ORDERED: ceFAZolin 2 GRAM PREMIX BAG IVPB ONE (08:20)
[2019-08-11] MEDS ORDERED: ceFAZolin SODIUM 1 GM VIAL ONE (08:25)
[2019-08-11] MEDS ORDERED: oxyCODONE HCL 5 MG TABLET PO PRN ×2 (09:12)
[2019-08-11] MEDS ORDERED: ONDANSETRON 4 MG/2 ML VIAL IVPUSH PRN (09:12)
[2019-08-11] MEDS ORDERED: PROMETHAZINE HCL 25 MG/1 ML VIAL IVPUSH PRN (09:12)
[2019-08-11] MEDS ORDERED: LACTATED RINGERS SOLUTION 1,000 ML IV SCH (09:15)
--- NOTE | 2019-08-11 09:17 | OP ---
Operative Note - Note: Operative Date: 08/11/19 Pre-Operative Diagnosis: right knee medial and lateral meniscus tear, OA Operation: right knee arthroscopy, partial medial and lateral meniscectomy, debridement chondroplasty Post-Operative Diagnosis: Same as Pre-op Surgeon: Manoj Buitrago Anesthesiologist/SEWING MACHINE ADJUSTER: Tony Dewey Anesthesia: General, Local Specimens Removed: shavings Estimated Blood Loss (mls): 0 Drains, Volume Out (mls): 0 Blood Volume Replaced (mls): 0 Fluid Volume Replaced (mls): 700
[2019-08-11] MEDS ORDERED: traMADol HCL 50 MG TABLET ONE (12:04)
[2019-08-11 13:19] VITALS: BP 132/87; PULSE 64; TEMP 96.6
--- NOTE | 2019-08-11 16:53 | OP ---
DATE OF OPERATION: 08/11/2019 PREOPERATIVE DIAGNOSIS: Right knee medial and lateral meniscus tear and osteoarthritis. POSTOPERATIVE DIAGNOSIS: Right knee medial and lateral meniscus tear and osteoarthritis. PROCEDURE: Right knee arthroscopy, partial medial and lateral meniscectomy and debridement chondroplasty. SURGEON: Jeffrey Arnett MD. ANESTHESIOLOGIST: Tony Dewey MD. ANESTHESIA: LMA anesthesia with local injection of 20 mL 0.5% Marcaine, 1% lidocaine mix. DRAINS: None. COMPLICATIONS: None. SPECIMENS: Arthroscopic shavings. BLOOD LOSS: None. . BLOOD GIVEN: None. FLUID REPLACEMENT: 700 mL Plasmalyte. INDICATION: This patient is a 64-year-old female with the preoperative diagnosis of significant right knee pain and complex medial meniscus tear, small lateral meniscus tear, and osteoarthritis. After understanding the potential risks, complications, alternatives, benefits to surgery versus nonsurgical treatment, the patient elected to undergo this procedure. The patient understands that we may need to do additional treatments for the osteoarthritis, the osteoarthritis might progress to the point that we would need to do shots and cortisone gel or recommend additional surgery including a partial or total knee replacement. DESCRIPTION OF PROCEDURE: The patient was brought to the operating room, peripheral IV placed, IV sedation given. 2 g of IV Ancef was given. LMA anesthesia was induced. Tourniquet was applied around the right upper thigh and the C-clamp let atwood was applied. The right lower extremity was prepped and draped in sterile fashion. Elevated, exsanguinated with Esmarch bandage and tourniquet inflated to 275 mmHg. A superior medial outflow portal was established. A lateral portal was established. Under direct visualization using the spinal needle a medial portal was established. A patient was seen to have a complex tear of the body and posterior horn of the medial meniscus. It was probed, further confirmed to be complex, significant, and there was a combination of the straight basket forceps, the upbiter, and the curved shaver. I did a partial medial meniscectomy. Photographs were taken before and after. The patient had grade 1 and small areas of grade 2 chondromalacia of the medial femoral condyle, medial tibial plateau, a gentle debridement chondroplasty is performed in these areas as well. Next, our attention turned to the intracondylar notch. It looked good. The ACL looked good. It was probed and had the appropriate tension. Patient did have some small fraying of the body of the lateral meniscus. This was gently debrided with a curved shaver. There were also grade 1 changes and a small area of grade 2 chondromalacia of the medial femoral condyle, this and the medial tibial plateau were debrided as well. Next our attention was turned to the patellofemoral joint. The patient had crab meat chondromalacia on the undersurface of the patella, watching it in its trochlear groove there were areas of contact with osteoarthritic affected cartilage on the trochlear side as well. Gentle debridement chondroplasty was performed of the patellofemoral joint. Once this was done, the area was copiously irrigated and washed out. Again explored, no other abnormalities were seen. All excess and debris were removed. The arthroscopy portal was closed with 3-0 nylon sutures. It was washed and dried, and 20 mL of 0.5% Marcaine was injected into the joint. The area was then covered with Xeroform, 4x4 gauze, Webril, and 2 Clement bandages. The tourniquet was taken down after total tourniquet time of 20 minutes. There were no complications during the case. The patient tolerated the procedure well, was brought to the ambulatory recovery in stable condition. JEFFREY ARNETT M.D. [id number]
--- NOTE | 2019-08-12 16:55 | PATH ---
Surgical Pathology Report Patient Name: CAYETANO GARCIA Med. Rec. #: [id number] /Age/Gender: 1955 (Age: 64) / F Account: [id number] Location: [facility] SURGICAL Taken: 08/11/2019 Received: 08/11/2019 Reported: 08/12/2019 Physicians: Manoj Buitrago M.D. Specimen(s) Received RIGHT KNEE SHAVINGS Clinical History Right knee tear Final Diagnosis RIGHT KNEE SHAVINGS: FRAGMENTS OF CARTILAGE AND SYNOVIAL TISSUE WITH REACTIVE AND DEGENERATIVE CHANGE. FIBRINOUS EXUDATE PRESENT Electronically Signed Lizette Toledo M.D. Gross Description Received in formalin, labeled "right knee shavings," is a 4.0 x 3.0 x 0.4 cm. aggregate of burks-yellow soft tissue fragments. A medical billing representative portion is submitted in one cassette. /08/11/2019 saudi/08/11/2019
== END 2019-08-11 13:26 | disposition home or self-care (01) ==
LOC: JASU-SURG 05:03
PROVIDERS: ATTEND Orthopaedic Surgery
PROC: 0SBC4ZZ Excision of Right Knee Joint, Percutaneous Endoscopic Approach (ICD-10-PCS; 2019-08-11)
PROC: 0SB94ZZ Excision of Right Hip Joint, Percutaneous Endoscopic Approach (ICD-10-PCS; 2019-08-11)
PROC: 0SBC4ZZ Excision of Right Knee Joint, Percutaneous Endoscopic Approach (ICD-10-PCS; principal; 2019-08-11 08:00)
DX: S83.241A Other tear of medial meniscus, current injury, right knee, initial encounter (principal); S83.281A Other tear of lateral meniscus, current injury, right knee, initial encounter; M17.11 Unilateral primary osteoarthritis, right knee; X58.XXXA Exposure to other specified factors, initial encounter; Y93.9 Activity, unspecified; Y92.9 Unspecified place or not applicable; M22.41 Chondromalacia patellae, right knee; E78.00 Pure hypercholesterolemia, unspecified; E66.9 Obesity, unspecified; Z68.37 Body mass index [BMI] 37.0-37.9, adult; R73.03 Prediabetes
CPT/HCPCS: 29880; G0289; 88304-TC; 94760

== ENCOUNTER 2020-05-27 09:23 | Emergency (ER) | payer OTHER ==
[2020-05-27 09:38] VITALS: TEMP 98.4; BMI 38.3
[2020-05-27] MEDS ORDERED: ACETAMINOPHEN 500 MG TABLET (FP) PO ONE ×2 (10:24→17:31)
[2020-05-27] MEDS ORDERED: ACETAMINOPHEN 500 MG TABLET (FP) ONE ×2 (10:24→17:31)
[2020-05-27 13:48] LABS: BASO % 0.4 % (0-2.0); EOS % 2.2 % (0-4.5); HEMOGLOBIN 11.9 GM/dL (10.7-15.3); LYMPH % 35.2 % (8-40); MCH 27.9 pg (25.7-33.7); MCHC 33.1 g/dl (32.0-36.0); MEAN CELL VOLUME 84.3 fl (80-96); MEAN PLT VOLUME 8.4 fl (7.5-11.1); MONO % 9.4 % (3.8-10.2); NEUT % 52.8 % (42.8-82.8); PLATELET COUNT 332 K/MM3 (134-434); RBC 4.27 M/mm3 (3.60-5.2); RDW 14.9 % (11.6-15.6); WHITE BLOOD COUNT 6.9 K/mm3 (4.0-10.0)
[2020-05-27 14:11] LABS: ALBUMIN 3.8 g/dl (3.4-5.0); BLOOD UREA NITROGEN 13.6 mg/dL (7-18); CALCIUM 8.8 mg/dL (8.5-10.1)
[2020-05-27 14:14] LABS: CREATININE 0.8 mg/dL (0.55-1.3)
[2020-05-27 14:16] LABS: BILIRUBIN,TOTAL 0.2 mg/dL (0.2-1); TOT PROT 7.3 g/dl (6.4-8.2)
[2020-05-27 16:51] VITALS: BP 148/79; PULSE 76
== END 2020-05-27 17:35 | disposition home or self-care (01) ==
LOC: JER 09:23
DX: L03.221 Cellulitis of neck (principal)
CPT/HCPCS: 36415; 70491-TC; 76536-TC; 80053; 85025; 99284-25; Q9967

== ENCOUNTER 2022-07-16 11:29 | Observation (INO) | payer OTHER ==
[2022-07-16 11:40] VITALS: RESP 18
[2022-07-16] MEDS ORDERED: ONDANSETRON 4 MG/2 ML VIAL IVPUSH ONE (12:17)
[2022-07-16] MEDS ORDERED: SODIUM CHLORIDE 0.9% 500 ML INFUS.BAG IV ONE (12:20)
[2022-07-16] MEDS ORDERED: ACETAMINOPHEN 1000 MG/100 ML BAG IVPB ONE (12:27)
[2022-07-16] MEDS ORDERED: ACETAMINOPHEN INJECTION 100 ML IVPB ONE (12:55)
[2022-07-16] MEDS ORDERED: ONDANSETRON 4 MG/2 ML VIAL ONE (12:56)
[2022-07-16 13:22] LABS: BASO % 0.5 % (0-2.0); EOS % 0.9 % (0-4.5); HEMATOCRIT 40.5 % (32.4-45.2); HEMOGLOBIN 13.2 GM/dL (10.7-15.3); LYMPH % 23.3 % (8-40); MCH 27.3 pg (25.7-33.7); MCHC 32.6 g/dl (32.0-36.0); MEAN CELL VOLUME 83.8 fl (80-96); MEAN PLT VOLUME 8.4 fl (7.5-11.1); MONO % 7.6 % (3.8-10.2); NEUT % 67.7 % (42.8-82.8); PLATELET COUNT 325 10^3/uL (134-434); RBC 4.84 M/mm3 (3.60-5.2); RDW 15.3 % (11.6-15.6); WHITE BLOOD COUNT 7.9 K/mm3 (4.0-10.0)
[2022-07-16 13:31] LABS: INR 1.1 (0.83-1.09); PROTHROMBIN TIME (PATIENT) 12.7 SEC (9.7-13.0)
[2022-07-16 13:32] LABS: URINE APPEARANCE CLEAR; URINE BILIRUBIN NEGATIVE (NEGATIVE); URINE COLOR YELLOW; URINE GLUCOSE (UA) NEGATIVE (NEGATIVE); URINE KETONE NEGATIVE (NEGATIVE); URINE LEUK ESTERASE NEGATIVE (NEGATIVE); URINE NITRITE NEGATIVE (NEGATIVE); URINE PROTEIN NEGATIVE (NEGATIVE); URINE UROBILINOGEN 0.2 mg/dL (0.2-1.0)
[2022-07-16 13:34] LABS: ACTIVATED PTT 34.2 SECONDS (25.2-36.5)
[2022-07-16 13:40] LABS: POTASSIUM 4.6 mmol/L (3.5-5.1)
[2022-07-16 13:42] LABS: ALBUMIN 3.9 g/dl (3.4-5.0); BLOOD UREA NITROGEN 19.4 mg/dL (7-18); CALCIUM 9.4 mg/dL (8.5-10.1); MAGNESIUM 2.4 mg/dL (1.8-2.4)
[2022-07-16 13:47] LABS: BILIRUBIN,TOTAL 0.3 mg/dL (0.2-1); TOT PROT 7.4 g/dl (6.4-8.2)
[2022-07-16] MEDS ORDERED: ASPIRIN 81 MG CHEWABLE TABLETS PO ONE (13:47)
[2022-07-16] MEDS ORDERED: ASPIRIN 81 MG CHEWABLE TABLETS ONE (14:02)
[2022-07-16] MEDS ORDERED: ALBUTEROL SO4 0.083% IH SOL 2.5 MG/3 ML VIAL.NEB. NEB PRN (14:53)
[2022-07-16] MEDS ORDERED: ACETAMINOPHEN 325 MG TABLET (FP) PO PRN (14:53)
[2022-07-16] MEDS ORDERED: D5-1/2NS+20 MEQ KCL - 20 MEQ/1,000 ML INFUS.BAG IV SCH (15:00)
[2022-07-16 16:37] VITALS: BMI 37.3
[2022-07-16] MEDS: PANTOPRAZOLE 40 MG TABLET PO SCH (17:02)
[2022-07-16] MEDS ORDERED: DEXTROSE 5%-0.45% SALINE 1,000 ML IV SCH (20:30)
[2022-07-16] MEDS: HEPARIN NA (PORCINE) 5,000 UNITS/ML 1ML VIAL SQ SCH (21:35)
[2022-07-17 08:26] LABS: BASO % 0.3 % (0-2.0); EOS % 1.7 % (0-4.5); HEMATOCRIT 34.8 % (32.4-45.2); HEMOGLOBIN 11.5 GM/dL (10.7-15.3); LYMPH % 48.3 % (8-40); MCH 27.7 pg (25.7-33.7); MCHC 33.2 g/dl (32.0-36.0); MEAN CELL VOLUME 83.4 fl (80-96); MEAN PLT VOLUME 8.6 fl (7.5-11.1); MONO % 8.8 % (3.8-10.2); NEUT % 40.9 % (42.8-82.8); PLATELET COUNT 317 10^3/uL (134-434); RBC 4.17 M/mm3 (3.60-5.2); RDW 15.4 % (11.6-15.6); WHITE BLOOD COUNT 5.1 K/mm3 (4.0-10.0)
[2022-07-17] MEDS: THYROID PO SCH ×2 (08:26→12:06)
[2022-07-17 08:29] LABS: POTASSIUM 4.6 mmol/L (3.5-5.1)
[2022-07-17 08:35] LABS: ALBUMIN 3.5 g/dl (3.4-5.0); BLOOD UREA NITROGEN 17.3 mg/dL (7-18); CALCIUM 8.5 mg/dL (8.5-10.1); MAGNESIUM 2.4 mg/dL (1.8-2.4)
[2022-07-17 08:36] LABS: CREATININE 0.9 mg/dL (0.55-1.3)
[2022-07-17 08:38] LABS: BILIRUBIN,TOTAL 0.4 mg/dL (0.2-1); TOT PROT 6.5 g/dl (6.4-8.2)
[2022-07-17 08:43] VITALS: BP 122/69; PULSE 62; TEMP 98
[2022-07-17] MEDS ORDERED: ASPIRIN COATED 81 MG TABLET.EC PO SCH (10:00)
[2022-07-17] MEDS ORDERED: THYROID 60 MG TABLET PO SCH (10:00)
[2022-07-17] MEDS: HEPARIN NA (PORCINE) 5,000 UNITS/ML 1ML VIAL SQ SCH (12:06)
[2022-07-17] MEDS: PANTOPRAZOLE 40 MG TABLET PO SCH (12:06)
== END 2022-07-17 17:12 | disposition home or self-care (01) ==
LOC: JER 11:29 → JERBED 14:15 → J4W 16:00
PROVIDERS: ADMIT Family Medicine; ATTEND Family Medicine
PROC: 3E033NZ Introduction of Analgesics, Hypnotics, Sedatives into Peripheral Vein, Percutaneous Approach (ICD-10-PCS; principal; 2022-07-16)
PROC: 3E0337Z Introduction of Electrolytic and Water Balance Substance into Peripheral Vein, Percutaneous Approach (ICD-10-PCS; 2022-07-16)
PROC: 3E023GC Introduction of Other Therapeutic Substance into Muscle, Percutaneous Approach (ICD-10-PCS; 2022-07-16)
PROC: 3E033GC Introduction of Other Therapeutic Substance into Peripheral Vein, Percutaneous Approach (ICD-10-PCS; 2022-07-16)
DX: R55 Syncope and collapse (principal); E06.3 Autoimmune thyroiditis; E78.5 Hyperlipidemia, unspecified; R07.9 Chest pain, unspecified; Z85.6 Personal history of leukemia; Z88.6 Allergy status to analgesic agent
CPT/HCPCS: 0241U-QW; 36415; 71045-TC-FY; 78452-TC; 80053; 80061; 81003; 83036; 83735; 84443; 84484; 85025; 85379; 85610; 85730; 86850; 86900; 86901; 87086; 93005; 93010; 93017; 93306-TC; 99285-25; A9502; G0378; J1644

== ENCOUNTER 2023-04-30 05:03 | Day surgery (SDC) | payer OTHER ==
[2023-04-26 15:58] VITALS: BMI 39.1
[2023-04-30] MEDS: LIDOCAINE HCL 1%, 10 MG/ML (20ML VIAL) INF ONE (12:07)
[2023-04-30 12:39] VITALS: BP 131/78; PULSE 60; RESP 18; TEMP 97.8
== END 2023-04-30 13:24 | disposition home or self-care (01) ==
LOC: JASU-SURG 05:03
PROVIDERS: ATTEND Orthopaedic Surgery
PROC: 015D3ZZ Destruction of Femoral Nerve, Percutaneous Approach (ICD-10-PCS; principal; 2023-04-30 14:00)
DX: M17.12 Unilateral primary osteoarthritis, left knee (principal)

== ENCOUNTER 2023-05-18 12:25 | Emergency (ER) | payer OTHER ==
[2023-05-18 12:46] VITALS: BMI 38.3
[2023-05-18] MEDS ORDERED: FAMOTIDINE 10 MG TABLET ONE (13:53)
[2023-05-18] MEDS ORDERED: ONDANSETRON *ODT* 4 MG TABLET ONE (13:54)
[2023-05-18] MEDS: ONDANSETRON *ODT* 4 MG TABLET SL ONE (13:56)
[2023-05-18] MEDS: FAMOTIDINE 10 MG TABLET PO ONE (13:56)
[2023-05-18 15:37] VITALS: BP 141/84; PULSE 63; RESP 18; TEMP 98.4
== END 2023-05-18 15:38 | disposition home or self-care (01) ==
LOC: JER 12:25
DX: R60.0 Localized edema (principal)
CPT/HCPCS: 93971-TC; 99284-25; Q0162

== ENCOUNTER 2023-10-16 11:43 | Emergency (ER) | payer OTHER ==
[2023-10-16] MEDS ORDERED: ACETAMINOPHEN INJECTION 100 ML ONE (12:59)
[2023-10-16] MEDS: ACETAMINOPHEN 1000 MG/100 ML BAG IVPB ONE (13:09)
[2023-10-16 13:20] VITALS: RESP 18; BMI 39.1
[2023-10-16 13:23] LABS: BASO % 0.6 % (0-2.0); EOS % 1.5 % (0-4.5); HEMATOCRIT 38.7 % (32.4-45.2); HEMOGLOBIN 12.6 GM/dL (10.7-15.3); LYMPH % 36.8 % (8-40); MCH 27.8 pg (25.7-33.7); MCHC 32.6 g/dl (32.0-36.0); MEAN CELL VOLUME 85.3 fl (80-96); MEAN PLT VOLUME 8.3 fl (7.5-11.1); MONO % 6.9 % (3.8-10.2); NEUT % 54.2 % (42.8-82.8); PLATELET COUNT 370 10^3/uL (134-434); RBC 4.54 M/mm3 (3.60-5.2); WHITE BLOOD COUNT 6.2 K/mm3 (4.0-10.0)
[2023-10-16] MEDS ORDERED: KETOROLAC TROMETHAMINE 15 MG/ML VIAL ONE (13:36)
[2023-10-16] MEDS: KETOROLAC TROMETHAMINE 15 MG/ML VIAL IVPUSH ONE (13:39)
[2023-10-16] MEDS: SODIUM CHLORIDE 0.9% 500 ML INFUS.BAG IV ONE (13:42)
[2023-10-16 13:45] LABS: POTASSIUM 4.7 mmol/L (3.5-5.1)
[2023-10-16 13:48] LABS: ALBUMIN 3.9 g/dl (3.4-5.0); BLOOD UREA NITROGEN 17.8 mg/dL (7-18); CALCIUM 9.6 mg/dL (8.5-10.1)
[2023-10-16] MEDS ORDERED: ONDANSETRON 4 MG/2 ML VIAL ONE (13:50)
[2023-10-16 13:52] LABS: BILIRUBIN,TOTAL 0.4 mg/dL (0.2-1); TOT PROT 7.5 g/dl (6.4-8.2)
[2023-10-16] MEDS: ONDANSETRON 4 MG/2 ML VIAL IVPB ONE (13:52)
[2023-10-16 15:03] VITALS: BP 124/81; PULSE 71; TEMP 98.2
== END 2023-10-16 15:02 | disposition home or self-care (01) ==
LOC: JER 11:43
PROC: 3E033NZ Introduction of Analgesics, Hypnotics, Sedatives into Peripheral Vein, Percutaneous Approach (ICD-10-PCS; principal; 2023-10-16)
PROC: 3E033GC Introduction of Other Therapeutic Substance into Peripheral Vein, Percutaneous Approach (ICD-10-PCS; 2023-10-16)
PROC: 3E0333Z Introduction of Anti-inflammatory into Peripheral Vein, Percutaneous Approach (ICD-10-PCS; 2023-10-16)
DX: R07.89 Other chest pain (principal); R11.0 Nausea
CPT/HCPCS: 36415; 71045-TC-FY; 80053; 84484; 85025; 93005; 93010; 99285-25; J0131